=== PATIENT | female | born 1935 | race Caucasian/White ===

== ENCOUNTER 2016-09-08 08:03 | Emergency (ER) | payer MEDICARE ==
--- NOTE | 2016-09-08 08:22 | ERNOTE ---
ENT HPI Presenting Symptoms: nosebleed Time Seen by Provider: 09/08/16 08:14 Source: patient Exam Limitations: no limitations - Immun/Allergies/Home Medications Immunizations: IMMUNIZATION HX Immunizations Up to Date Yes History of Influenza Vaccine Yes Hx Pneumococcal Vaccination Yes Allergies/Adverse Reactions: Allergies Allergy/AdvReac Type Severity Reaction Status Date / Time Tetanus Toxoid,Fl Allergy Mild "MAKES Verified 09/08/16 08:12 *RETIRED-11/26/12 SICK" [Tetanus Toxoid,Fluid] codeine [Codeine] AdvReac Mild MAKES HYPER Verified 09/08/16 08:12 levofloxacin [Levofloxacin] AdvReac Mild RASH Verified 09/08/16 08:12 MSG Allergy Uncoded 09/08/16 08:12 Home Medications: HOME MEDICATIONS Levothyroxine Sodium [Synthroid] 100 mcg PO DAILY 07/27/12 [Last Taken Unknown] Calcium/Cranberry Fruit [Cranberry 400 mg Caplet] 1 each PO DAILY 03/31/15 [ Last Taken Unknown] Aspirin [Aspirin Chewable] 81 mg PO DAILY 04/14/16 [Last Taken Unknown] Potassium Chloride [K-Dur] 40 meq PO DAILY #30 tab 04/15/16 [Last Taken Unknown] Cholecalciferol (Vitamin D3) [Vitamin D3] 2,000 unit PO DAILY 09/08/16 [Last Taken Unknown] Cinnamon Bark [Cinnamon] 1,000 mg PO DAILY 09/08/16 [Last Taken Unknown] Docusate Sodium [Stool Softener] 200 mg PO DAILY PRN 09/08/16 [Last Taken Unknown] Metoprolol Tartrate [Lopressor] 100 mg PO BID 09/08/16 [Last Taken Unknown] Torsemide [Demadex] 20 mg PO DAILY 09/08/16 [Last Taken Unknown] Warfarin Sodium [Coumadin] 2 mg PO DAILY@1700 09/08/16 [Last Taken Unknown] - History of Present Illness Date (Duration): 09/07/16 Severity: Present: moderate ENT Location: Present: nose Prearrival Treatment: Present: no prearrival treatment Modifying Factors - Improves: Reports: rest, other Modifying Factors - Worsens: Reports: coughing Associated Symptoms - ENT: Reports: nasal congestion/drainage, other - patient has had bleeding from left nare since last evening Review of Systems - Review of Systems Constitutional: Present: no symptoms reported EYE: Present: no symptoms reported ENT: Present: other - bleeding from left nare Respiratory: Present: no symptoms reported Cardiology: Present: no symptoms reported Gastrointestinal/Abdominal: Present: no symptoms reported Genitourinary: Present: no symptoms reported Musculoskeletal: Present: no symptoms reported Skin: Present: no symptoms reported Neurological: Present: no symptoms reported Endocrine: Present: no symptoms reported Hematologic/Lymphatic: Present: easy bruising, easy bleeding Psych: Present: no symptoms reported All Other Systems: All systems neg except as marked - Patient's Past Medical History Patient History - Medical: Anemia, Diabetes Type 2, Hypothyroidism, UTI'S, Other Patient History - Cardiac/Respiratory: Atrial Fibrillation, CHF, Hyperlipidemia Patient History - Cancer: No Hx of Cancer Patient History - Surgical Procedures: Cholecystectomy, Hysterectomy, T & A Patient History - Other: None - Family History Mother Family History - Medical: , Diabetes Type 2 Family History - Cardiac/Respiratory: Cardiac Arrest, CHF, Myocardial Infarction Family History - Cancer: No pertinent family hx Father Family History - Medical: , Diabetes Type 2 Family History - Cardiac/Respiratory: No pertinent hx, Atrial Fibrillation Family History - Cancer: No pertinent family hx Sister Family History - Medical: No pertinent hx, Diabetes Type 2 Family History - Cardiac/Respiratory: Atrial Fibrillation, Coronary Heart Disease, CVA/Stroke Family History - Cancer: No pertinent family hx Brother Family History - Medical: Diabetes Type 2 Family History - Cardiac/Respiratory: Coronary Heart Disease - Social History Living Situations: home Abuse History: No History of abuse Psych History: No pertinent hx Does anyone smoke in the home?: No Smoking Status: Never smoker Have you smoked in the past 12 months: No Do you dip or chew tobacco: No Alcohol Use: rarely Drug Use: none - Immunizations Immunizations Up to Date: Yes Hx Pneumococcal Vaccination: Yes History of Influenza Vaccine: Yes Physical Exam - Physical Exam General Appearance: Present: alert, mild distress, anxious Eye Exam: Normal inspection: bilateral, PERRL: bilateral, EOMI: bilateral, Abnormal EOM: bilateral, Abnormal pupil: bilateral, Sclera injection: bilateral , Scleral icterus: bilateral, Eye drainage: bilateral, Eyelid inflammation: bilateral, Conjunctivae pale: bilateral, Photophobia: bilateral, Other: bilateral Ears, Nose, Throat: Present: other - active bleeding from nasal septum left nare Neck: Present: normal inspection, nontender Respiratory: Present: no respiratory distress, normal breath sounds, no accessory muscle use, chest nontender, lungs clear Cardiovascular/Chest: Present: irregularly irregular, systolic murmur Peripheral Pulses: N=norm/S=strong/W=weak/B=bound/A=absent: Carotid (R): Normal , Carotid (L): Normal, Radial (R): Normal, Radial (L): Normal, Femoral (R): Normal, Femoral (L): Normal, Dorsalis-pedis (R): Normal Gastrointestinal/Abdominal: Present: normal bowel sounds Rectal Exam: Present: deferred Back Exam: Present: normal inspection, normal range of motion, no CVA tenderness Extremity Exam: Present: normal inspection, non-tender, normal range of motion, no edema Neurological Exam: Present: alert, oriented, normal mood/affect, no motor/ sensory deficits DTR: N=norm/NB=norm/brisk/A=abs/DD=dull/dimin/HC=hyperactive: Bicep (R): Normal , Bicep (L): Normal, Tricep (R): Normal, Tricep (L): Normal, Knee (R): Normal Skin Exam: Present: normal color, warm/dry Lymphatic Exam: Present: no adenopathy Pelvic Exam: Present: deferred ED Progress - Results and Orders Patient's Lab Results:: I have reviewed the patient's lab results. - Vital Signs Patient's Vital Signs:: I have reviewed the patient's vital signs. Vital Signs: Vital Signs 09/08/16 08:08 Temperature 36.6 C Pulse Rate 83 Respiratory 16 Rate Blood Pressure 132/69 O2 Sat by Pulse 96 Oximetry - Progress/Reassessment Chief Complaint: Nose Bleed Progress:: Improved Procedures Date and Time: nasal packing placed in left nare , bleeding resolved to f/u with ent 2-3 days return if further problems develop Departure Clinical Impression: Epistaxis - Departure Disposition: Home self-care Condition: Fair Additional Instructions: patient to maintain rhino rocket until seen by [facility] care Referrals: Aleida Wright MD [Primary Care Provider] -
[2016-09-08 08:43] LABS: Hematocrit 37.5 % (37.0-47.0); Mean Cell Volume 96.9 fl (78-100); Mean Platelet Volume 11.5 fl (6.0-9.5); Neutrophil # 4.3 K/mm3 (1.3-6.0); Neutrophil % 67.1 % (42-75.0); Platelet Count 143 K/mm3 (150-450); Red Blood Count 3.87 M/mm3 (4.2-5.4); Red Cell Distribution Width 14.6 % (11.5-14.0); White Blood Count 6.5 K/mm3 (4.0-10.5)
[2016-09-08 09:01] LABS: INR 2.4 INR (0.90-1.10)
[2016-09-08 09:52] VITALS: BP 119/52
== END 2016-09-08 09:25 | disposition home or self-care (01) ==
LOC: ER 08:03
DX: R04.0 Epistaxis (principal); D64.9 Anemia, unspecified; E11.9 Type 2 diabetes mellitus without complications; E03.9 Hypothyroidism, unspecified; I48.91 Unspecified atrial fibrillation; Z79.01 Long term (current) use of anticoagulants; I50.9 Heart failure, unspecified; E78.5 Hyperlipidemia, unspecified; Z87.440 Personal history of urinary (tract) infections

== ENCOUNTER 2019-06-07 18:18 | Inpatient (IN) ==
[2019-06-07] MEDS ORDERED: ALBUTEROL SULFATE 2.5 MG/0.5 ML VIAL.NEB IH ONE (18:27)
[2019-06-07] MEDS ORDERED: FUROSEMIDE 10 MG/ML VIAL IV ONE (18:28)
--- NOTE | 2019-06-07 18:51 | ERNOTE ---
Dyspnea - Date Date of Service: 06/07/19 - General Presenting Symptoms: shortness of breath, difficulty of breathing Time Seen by Provider: 06/07/19 18:23 Source: patient, family Exam Limitations: clinical condition - Immun/Allergies/Home Medications Immunizations: IMMUNIZATION HX Immunizations Up to Date Yes History of Influenza Vaccine Yes Hx Pneumococcal Vaccination Yes Allergies/Adverse Reactions: Allergies Tetanus Toxoid,Fl *RETIRED-11/26/12 [Tetanus Toxoid,Fluid] Allergy (Mild, Verified 04/25/19 10:13) "MAKES SICK" benzonatate Allergy (Verified 04/25/19 10:13) "deathly sick" codeine [Codeine] Adverse Reaction (Mild, Verified 04/25/19 10:13) MAKES HYPER levofloxacin [Levofloxacin] Adverse Reaction (Mild, Verified 04/25/19 10:13) RASH MSG Allergy (Uncoded 03/28/19 13:08) unknown Home Medications: HOME MEDICATIONS Calcium/Cranberry Fruit [Cranberry 400 mg Caplet] 1 ea PO DAILY 03/31/15 [Last Taken Unknown] Docusate Sodium [Stool Softener] 200 mg PO DAILY PRN 09/08/16 [Last Taken Unknown] Warfarin Sodium [Coumadin] 2 mg PO DAILY@1700 09/08/16 [Last Taken Unknown] Potassium Chloride [K-Dur] 20 meq PO BID 02/02/17 [Last Taken Unknown] Metoprolol Succinate 200 mg PO DAILY 10/11/17 [Last Taken Unknown] blood sugar diagnostic See Dose Instructions .ROUTE .MEDSUPPLY #100 ea 12/22/17 [Last Taken Unknown] torsemide 20 mg tablet 20 mg PO DAILY 03/20/18 [Last Taken Unknown] warfarin 1 mg tablet See Rx Instructions .ROUTE .COMPLEX #180 tablet 03/11/19 [Last Taken Unknown] levothyroxine 100 mcg tablet See Rx Instructions .ROUTE .COMPLEX #90 tablet 03/19/19 [Last Taken Unknown] blood sugar diagnostic See Rx Instructions .ROUTE .COMPLEX #100 each 05/27/19 [Last Taken Unknown] - History of Present Illness Narrative: patient presents to ed with c/o dyspnea increasing over last several days,, starte with upper respiratory congestion Severity: moderate Treatment [employer]: albuterol, other - solumedrol Initiating event: Reports: upper resp illness Frequency of episodes: Reports: frequent episodes Modifying Factors - (Improves): Reports: albuterol, oxygen, coughing Modifying Factors (Worsens): Reports: activity, coughing Associated Symptoms-Dyspnea: Reports: fever/chills, wheezing, dizziness, lightheadedness Review of Systems - Review of Systems Constitutional: Present: See HPI, weakness, fatigue, malaise EYE: Present: no symptoms reported ENT: Present: nose pain, nose congestion Respiratory: Present: See HPI, shortness of breath, cough, orthopnea, wheezing Cardiology: Present: no symptoms reported Gastrointestinal/Abdominal: Present: no symptoms reported Genitourinary: Present: no symptoms reported Musculoskeletal: Present: no symptoms reported Skin: Present: no symptoms reported Neurological: Present: no symptoms reported Endocrine: Present: no symptoms reported Hematologic/Lymphatic: Present: no symptoms reported Psych: Present: no symptoms reported Medical History (Last Reviewed 06/07/19 @ 18:53 by Becca Barriga RN) Mild concentric left ventricular hypertrophy (LVH) (Resolved) Onset Date: 09/24/15 EF 35-40%, LA severely dilated, RA severely dilated, diastolic dysfunction, severe MR, RSVP 45-50mmHg, mild AR, Echo, [facility] 02/14/2015 Hypothyroidism (Chronic) Onset Date: Unknown Hypertension (Chronic) Onset Date: Unknown Heart failure (Chronic) Onset Date: Unknown Type 2 diabetes mellitus (Chronic) Onset Date: Unknown History of cardioversion (Resolved) Onset Date: Unknown Atrial fibrillation (Chronic) Onset Date: Unknown Asthma (Chronic) Onset Date: Unknown Wrist fracture, right Onset Date: 03/05/19 Surgical History: Surgical History (Last Reviewed 06/07/19 @ 18:53 by Becca Barriga RN) History of cholecystectomy Onset Date: Unknown History of hysterectomy Onset Date: ~1972 partial History of tonsillectomy and adenoidectomy Onset Date: Unknown Mitral valve replaced Onset Date: 09/24/15 Family History: Family History (Last Reviewed 06/07/19 @ 18:53 by Becca Barriga RN) Father Diabetes Mother Diabetes Social History: (Last Reviewed 06/07/19 @ 18:53 by Becca Barriga RN) Social History: Marital status: number of children: 2 current occupational status: retired Highest education level completed: high school graduate Service: No Tobacco: Smoking Status: Former smoker Alcohol: alcohol intake: current alcohol intake frequency: a few times a month Substance Use: substance use type: does not use Dietary Habits: caffeine: Yes Type: coffee Physical Exam - Physical Exam General Appearance: Present: moderate distress, anxious Head Exam: Present: normal inspection, no evidence of injury Eye Exam: Normal inspection: bilateral, PERRL: bilateral, EOMI: bilateral Ears, Nose, Throat: Present: normal ENT inspection, normal pharynx Neck: Present: normal inspection, nontender Respiratory: Present: respiratory distress, accessory muscle use, decreased breath sounds, crackles, rales, rhonchi, wheezing Gastrointestinal/Abdominal: Present: normal bowel sounds, nontender, nondistended, soft, no organomegaly Back Exam: Present: normal inspection, normal range of motion, no CVA tenderness, no vertebral tenderness Extremity Exam: Present: normal inspection, non-tender, normal range of motion, no edema Neurological Exam: Present: alert, oriented, normal mood/affect, no motor/sensory deficits Skin Exam: Present: normal color, warm/dry Lymphatic Exam: Present: no adenopathy Progress - Date and Time Seen: Date and Time: 06/07/19 19:36 patient improved, discussed case with dr christian, to admit to hospital - Results and Orders Patient's Lab Results:: I have reviewed the patient's lab results. - Vital Signs Patient's Vital Signs:: I have reviewed the patient's vital signs. Vital Signs: Vital Signs 06/07/19 18:24 Temperature 38.4 C H Pulse Rate 119 H Respiratory Rate 30 H Blood Pressure 124/67 O2 Sat by Pulse Oximetry 94 - EKG EKG #1 EKG: atrial fibrillation EKG read: Interp. by me - X-Ray X-Ray #1 X-Ray: chest - , pulmonary edema - Progress/Reassessment Chief Complaint: Dyspnea Progress:: Improved - Transfer of Care Expected Disposition: Admit Plan - Plan Plan: to admit to hospital Departure Clinical Impression: Pneumonia and influenza, A-fib, Acute CHF - Departure Disposition: Short Term Hospital Inpatient Condition: Serious
[2019-06-07 19:00] LABS: Hematocrit 36.5 % (37.0-47.0); Hemoglobin 11.3 gm/dL (12.5-16.0); Mean Corpuscular Hemoglobin 31.6 pg (27-31); Mean Platelet Volume 11.4 fl (8-12.5); Neutrophil # 8.4 K/mm3 (1.3-6.0); Neutrophil % 84.2 % (42-75.0); Platelet Count 106 K/mm3 (150-450); Red Blood Count 3.58 M/mm3 (4.2-5.4); Red Cell Distribution Width 15.6 % (11.5-14.0)
[2019-06-07 19:11] LABS: Prothrombin Time (Patient) 25.2 Seconds (9.1-10.7)
[2019-06-07 19:12] LABS: INR 2.64 INR (0.92-1.08)
[2019-06-07 19:22] LABS: Albumin * 3.8 gm/dl (3.4-5.0); Anion Gap 8.7 mmol/L (6.8-13.8); BUN/Creatinine Ratio 21.7 (9.0-21.6); Bilirubin, Total 0.8 mg/dL (0.0-1.1); CRP 8.2 mg/dL (0.0-0.9); Ca. Corrected For Albumin 8.1 mg/dL (8.4-10.2); Calcium * 8.3 mg/dL (7.9-10.9); Carbon Dioxide 31.7 mmol/L (24-32.6); Potassium 3.4 mmol/L (3.4-4.6); Total Protein 7.4 gm/dL (6.2-8.2); Troponin I 0.048 ng/mL (0.00-0.10)
[2019-06-07] MEDS ORDERED: NORMAL SALINE 1,000 ML IV PRN (19:33)
[2019-06-07] MEDS ORDERED: LIDOCAINE HCL 50 ML VIAL IM ONE (19:35)
[2019-06-07] MEDS ORDERED: ALBUTEROL SULFATE 2.5 MG/0.5 ML VIAL.NEB IH PRN (19:43)
[2019-06-07] MEDS ORDERED: ACETAMINOPHEN 500 MG TABLET PO ONE (19:44)
[2019-06-07] MEDS ORDERED: ACETAMINOPHEN 500 MG TABLET PO PRN (20:07)
[2019-06-07] MEDS ORDERED: NORMAL SALINE 500 ML IV PRN (20:15)
[2019-06-07] MEDS ORDERED: ENOXAPARIN SODIUM 40 MG/0.4 ML SYRG SC SCH (20:15)
[2019-06-07] MEDS ORDERED: DOCUSATE SODIUM 100 MG CAPSULE PO PRN (20:17)
--- NOTE | 2019-06-07 21:02 | HP ---
Chief Complaint - Chief Complaint Date of Service: 06/07/19 Time of Service: 20:59 Chief Complaint: I have cough fever and chest congestion for 2 days History of Present Illness: 83-year-old female with past medical history of atrial fibrillation, bronchial asthma, congestive heart failure, hypertension, hypothyroidism, was brought to the ER for evaluation of productive cough, chest congestion, fever, chills, and shortness of breath that started 2 days ago. Patient reports her symptoms started with a irritated throat which then developed into congestion and postnasal drainage and became accompanied by a productive cough, she later developed shortness of breath and developed chills as well as fever. Patient denies any sick contacts but admits to going bowling the day before becoming ill although she is not aware of anyone being ill at the time. Patient lives at home with her who is in his usual state of health and shows no sign of illness at the moment. She tried [id number] medications for her symptoms but continued to worsen. Patient's daughters became alarmed when they saw how weak their mother was becoming, they decided to bring the patient to the hospital this afternoon. Medical History (Last Reviewed 06/07/19 @ 18:53 by Becca Barriga RN) Mild concentric left ventricular hypertrophy (LVH) (Resolved) Onset Date: 09/24/15 EF 35-40%, LA severely dilated, RA severely dilated, diastolic dysfunction, severe MR, RSVP 45-50mmHg, mild AR, Echo, [facility] 02/14/2015 Hypothyroidism (Chronic) Onset Date: Unknown Hypertension (Chronic) Onset Date: Unknown Heart failure (Chronic) Onset Date: Unknown Type 2 diabetes mellitus (Chronic) Onset Date: Unknown History of cardioversion (Resolved) Onset Date: Unknown Atrial fibrillation (Chronic) Onset Date: Unknown Asthma (Chronic) Onset Date: Unknown Wrist fracture, right Onset Date: 03/05/19 Surgical History: Surgical History (Last Reviewed 06/07/19 @ 18:53 by Becca Barriga RN) History of cholecystectomy Onset Date: Unknown History of hysterectomy Onset Date: ~1972 partial History of tonsillectomy and adenoidectomy Onset Date: Unknown Mitral valve replaced Onset Date: 09/24/15 Family History: Family History (Last Reviewed 06/07/19 @ 18:53 by Becca Barriga RN) Father Diabetes Mother Diabetes Social History: (Last Reviewed 06/07/19 @ 18:53 by Becca Barriga RN) Social History: Marital status: number of children: 2 current occupational status: retired Highest education level completed: high school graduate Service: No Tobacco: Smoking Status: Former smoker Alcohol: alcohol intake: current alcohol intake frequency: a few times a month Substance Use: substance use type: does not use Dietary Habits: caffeine: Yes Type: coffee Peds Patient Hx - Developmental: No Pertinent Hx Peds Patient Hx - Medical: No Pertinent Hx Peds Patient Hx - Cardiac/Respiratory: No Pertinent Hx Peds Patient Hx - Surgical: No Surgical History Patient History - Cancer: No Hx of Cancer Review Of Systems (GEN) - Review of Systems Generalized/Overall Review: Present: Weakness, Chills, Fever, Malaise, Fatigue EENTM: Present: No Symptoms Reported Respiratory: Present: Cough, Shortness of Breath, Wheezing Cardiac: Present: No Symptoms Reported Abdominal: Present: No Symptoms Reported Genitourinary: Present: No Symptoms Reported Musculoskeletal: Present: No Symptoms Reported Neurological: Present: No Symptoms Reported Skin: Present: No Symptoms Reported Endocrine: Present: No Symptoms Reported Immunizations: IMMUNIZATION HX Immunizations Up to Date Yes History of Influenza Vaccine Yes Hx Pneumococcal Vaccination Yes Allergies/Adverse Reactions: Allergies Allergy/AdvReac Type Severity Reaction Status Date / Time Tetanus Toxoid,Fl Allergy Mild "MAKES Verified 04/25/19 10:13 *RETIRED-11/26/12 SICK" [Tetanus Toxoid,Fluid] benzonatate Allergy "deathly Verified 04/25/19 10:13 sick" codeine [Codeine] AdvReac Mild MAKES HYPER Verified 04/25/19 10:13 levofloxacin [Levofloxacin] AdvReac Mild RASH Verified 04/25/19 10:13 MSG Allergy unknown Uncoded 03/28/19 13:08 Home Medications: HOME MEDICATIONS Calcium/Cranberry Fruit [Cranberry 400 mg Caplet] 1 ea PO DAILY 03/31/15 [Last Taken Unknown] Docusate Sodium [Stool Softener] 200 mg PO DAILY PRN 09/08/16 [Last Taken Unknown] Warfarin Sodium [Coumadin] 2 mg PO DAILY@1700 09/08/16 [Last Taken Unknown] Potassium Chloride [K-Dur] 20 meq PO BID 02/02/17 [Last Taken Unknown] Metoprolol Succinate 200 mg PO DAILY 10/11/17 [Last Taken Unknown] blood sugar diagnostic See Dose Instructions .ROUTE .MEDSUPPLY #100 ea 12/22/17 [Last Taken Unknown] torsemide 20 mg tablet 20 mg PO DAILY 03/20/18 [Last Taken Unknown] warfarin 1 mg tablet See Rx Instructions .ROUTE .COMPLEX #180 tablet 03/11/19 [Last Taken Unknown] levothyroxine 100 mcg tablet See Rx Instructions .ROUTE .COMPLEX #90 tablet 03/19/19 [Last Taken Unknown] blood sugar diagnostic See Rx Instructions .ROUTE .COMPLEX #100 each 05/27/19 [Last Taken Unknown] Exam - Exam Vital Signs: Vital Signs - Last Taken Temp 38.7 C H 06/07/19 20:20 Pulse 106 H 06/07/19 20:20 Resp 20 06/07/19 20:20 BP 98/58 06/07/19 20:20 Pulse Ox 99 06/07/19 20:20 Constitutional: Present: Alert, Oriented x3, Cooperative, Well developed, Well nourished, No distress, Elderly, Obese ENT Exam: Present: normal ENT inspection, pharynx normal, hard of hearing Eye Exam: bilateral eye: normal inspection, PERRL, EOMI Neck: Present: non-tender, full range of motion, supple, normal inspection, trachea midline Back Exam: Present: normal inspection, no CVA tenderness, no vertebral tenderness Breasts: Present: Exam deferred, Nontender Respiratory: Present: chest non-tender, no respiratory distress, no accessory muscle use, crackles, rales, rhonchi, wheezing Cardiovascular/Chest: Present: normal peripheral pulses, no chest tenderness, no edema, no gallop, no JVD, no murmur, no rub, irregularly irregular Peripheral Pulses: carotid (R): 3+, carotid (L): 3+, femoral (R): 3+, femoral (L): 3+ Abdomen: Present: Normal bowel sounds, soft, nontender, nondistended, no rebound tenderness, no hepatospenomegaly, no masses /Rectal: Present: Exam deferred Extremity: Present: normal range of motion, non-tender, normal inspection, no pedal edema, no calf tenderness, normal capillary refill, pelvis stable Skin Exam: Present: normal color, warm/dry, no cyanosis Lymphatic: Present: no adenopathy Neurologic: 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, normal cerebellar test, no mot or/sensory deficits, alert, normal mood/affect, oriented x 3 Appearance: Present: appropriate appearance, appropriate insight, neat, no memory impairment Eye contact: Present: cooperative, good eye contact, normal speech Thoughts: Present: normal thought pattern, no apparent hallucination Diagnostic Studies: Abnormal Lab Results 06/07/19 06/07/19 06/07/19 Range/Units 18:35 18:52 18:52 RBC 3.58 L (4.2-5.4) M/mm3 Hgb 11.3 L (12.5-16.0) gm/dL Hct 36.5 L (37.0-47.0) % MCV 102.0 H (78-100) fl MCH 31.6 H (27-31) pg MCHC 31.0 L (32-36) g/dl RDW 15.6 H (11.5-14.0) % Plt Count 106 L (150-450) K/mm3 Neutrophils % 84.2 H (42-75.0) % Lymphocytes % 12.4 L (20-51) % Neutrophils # 8.4 H (1.3-6.0) K/mm3 Lymphocytes # 1.24 L (1.5-3.5) k/mm3 PT (9.1-10.7) Seconds INR (Anticoag Therapy) (0.92-1.08) INR PTT ([place]) (24-32) Seconds pO2 (83.0-108.0) mmHg Total CO2 (19.0-24.0) mmol/L ABG pH (7.35-7.45) ABG O2 Sat (Measured) (94.0-98.0) % Est GFR (Non-Af Amer) 53 L (60-130) mL/min BUN/Creatinine Ratio 21.7 H (9.0-21.6) Random Glucose 173 H (70-110) mg/dL Lactic Acid, Venous (0.4-2.0) mmol/L Calcium Adj for Albumin 8.1 L (8.4-10.2) mg/dL AST 115 H (0-48) U/L C-Reactive Prot, Quant 8.2 H (0.0-0.9) mg/dL B-Natriuretic Peptide 3638 H (5-550) pg/mL Influenza Type A Ag Positive H (NEGATIVE) 06/07/19 06/07/19 06/07/19 Range/Units 18:52 18:52 18:52 RBC (4.2-5.4) M/mm3 Hgb (12.5-16.0) gm/dL Hct (37.0-47.0) % MCV (78-100) fl MCH (27-31) pg MCHC (32-36) g/dl RDW (11.5-14.0) % Plt Count (150-450) K/mm3 Neutrophils % (42-75.0) % Lymphocytes % (20-51) % Neutrophils # (1.3-6.0) K/mm3 Lymphocytes # (1.5-3.5) k/mm3 PT 25.2 H (9.1-10.7) Seconds INR (Anticoag Therapy) 2.64 H (0.92-1.08) INR PTT ([place]) 35.9 H (24-32) Seconds pO2 (83.0-108.0) mmHg Total CO2 (19.0-24.0) mmol/L ABG pH (7.35-7.45) ABG O2 Sat (Measured) (94.0-98.0) % Est GFR (Non-Af Amer) (60-130) mL/min BUN/Creatinine Ratio (9.0-21.6) Random Glucose (70-110) mg/dL Lactic Acid, Venous 2.3 H* (0.4-2.0) mmol/L Calcium Adj for Albumin (8.4-10.2) mg/dL AST (0-48) U/L C-Reactive Prot, Quant (0.0-0.9) mg/dL B-Natriuretic Peptide (5-550) pg/mL Influenza Type A Ag (NEGATIVE) 06/07/19 Range/Units 19:30 RBC (4.2-5.4) M/mm3 Hgb (12.5-16.0) gm/dL Hct (37.0-47.0) % MCV (78-100) fl MCH (27-31) pg MCHC (32-36) g/dl RDW (11.5-14.0) % Plt Count (150-450) K/mm3 Neutrophils % (42-75.0) % Lymphocytes % (20-51) % Neutrophils # (1.3-6.0) K/mm3 Lymphocytes # (1.5-3.5) k/mm3 PT (9.1-10.7) Seconds INR (Anticoag Therapy) (0.92-1.08) INR PTT ([facility]) (24-32) Seconds pO2 108.8 H (83.0-108.0) mmHg Total CO2 26.0 H (19.0-24.0) mmol/L ABG pH 7.48 H (7.35-7.45) ABG O2 Sat (Measured) 98.3 H (94.0-98.0) % Est GFR (Non-Af Amer) (60-130) mL/min BUN/Creatinine Ratio (9.0-21.6) Random Glucose (70-110) mg/dL Lactic Acid, Venous (0.4-2.0) mmol/L Calcium Adj for Albumin (8.4-10.2) mg/dL AST (0-48) U/L C-Reactive Prot, Quant (0.0-0.9) mg/dL B-Natriuretic Peptide (5-550) pg/mL Influenza Type A Ag (NEGATIVE) Laboratory Results WBC 10.0 K/mm3 (4.0-10.5) 06/07/19 18:52 RBC 3.58 M/mm3 (4.2-5.4) L 06/07/19 18:52 Hgb 11.3 gm/dL (12.5-16.0) L 06/07/19 18:52 Hct 36.5 % (37.0-47.0) L 06/07/19 18:52 MCV 102.0 fl (78-100) H 06/07/19 18:52 MCH 31.6 pg (27-31) H 06/07/19 18:52 MCHC 31.0 g/dl (32-36) L 06/07/19 18:52 RDW 15.6 % (11.5-14.0) H 06/07/19 18:52 Plt Count 106 K/mm3 (150-450) L 06/07/19 18:52 MPV 11.4 fl (8-12.5) 06/07/19 18:52 Immature Gran % (Auto) 0.30 % (0.001-0.429) 06/07/19 18:52 Immature Gran # (Auto) 0.03 K/mm3 (0.000-0.0310) 06/07/19 18:52 Neutrophils % 84.2 % (42-75.0) H 06/07/19 18:52 Lymphocytes % 12.4 % (20-51) L 06/07/19 18:52 Monocytes % 2.9 % (0.0-9) 06/07/19 18:52 Eosinophils % 0.0 % (0.0-3.0) 06/07/19 18:52 Basophils % 0.2 % (0.0-1.0) 06/07/19 18:52 Nucleated RBC % 0.0 k/mm3 (0-1) 06/07/19 18:52 Neutrophils # 8.4 K/mm3 (1.3-6.0) H 06/07/19 18:52 Lymphocytes # 1.24 k/mm3 (1.5-3.5) L 06/07/19 18:52 Monocytes # 0.3 k/mm3 (0.0-1.0) 06/07/19 18:52 Eosinophils # 0.0 k/mm3 (0.0-0.7) 06/07/19 18:52 Absolute Basophils 0.0 k/mm3 (0.0-0.1) 06/07/19 18:52 PT 25.2 Seconds (9.1-10.7) H 06/07/19 18:52 INR (Anticoag Therapy) 2.64 INR (0.92-1.08) H 06/07/19 18:52 PTT ([place]) 35.9 Seconds (24-32) H 06/07/19 18:52 pCO2 34.6 mmHg (32.0-45.0) 06/07/19 19:30 pO2 108.8 mmHg (83.0-108.0) H 06/07/19 19:30 HCO3 25.0 mmol/L (21.0-28.0) 06/07/19 19:30 Total CO2 26.0 mmol/L (19.0-24.0) H 06/07/19 19:30 Base Excess 1.6 mmol/L (-2.0-3.0) 06/07/19 19:30 ABG pH 7.48 (7.35-7.45) H 06/07/19 19:30 ABG O2 Sat (Measured) 98.3 % (94.0-98.0) H 06/07/19 19:30 Sodium 136 mmol/L (132-142) 06/07/19 18:52 Plasma Sodium 137 mmol/L (130-142) 06/07/19 18:52 Potassium 3.4 mmol/L (3.4-4.6) 06/07/19 18:52 Chloride 99 mmol/L (97-106) 06/07/19 18:52 Carbon Dioxide 31.7 mmol/L (24-32.6) 06/07/19 18:52 Anion Gap 8.7 mmol/L (6.8-13.8) 06/07/19 18:52 BUN 23 mg/dL (3-23) 06/07/19 18:52 Creatinine 1.06 mg/dL (0.4-1.4) 06/07/19 18:52 Est GFR (Non-Af Amer) 53 mL/min (60-130) L 06/07/19 18:52 BUN/Creatinine Ratio 21.7 (9.0-21.6) H 06/07/19 18:52 Random Glucose 173 mg/dL (70-110) H 06/07/19 18:52 Lactic Acid, Venous 2.3 mmol/L (0.4-2.0) H* 06/07/19 18:52 Calcium 8.3 mg/dL (7.9-10.9) 06/07/19 18:52 Calcium Adj for Albumin 8.1 mg/dL (8.4-10.2) L 06/07/19 18:52 Total Bilirubin 0.8 mg/dL (0.0-1.1) 06/07/19 18:52 AST 115 U/L (0-48) H 06/07/19 18:52 ALT 58 U/L (19-67) 06/07/19 18:52 Alkaline Phosphatase 112 U/L (50-170) 06/07/19 18:52 Troponin I 0.048 ng/mL (0.00-0.10) 06/07/19 18:52 C-Reactive Prot, Quant 8.2 mg/dL (0.0-0.9) H 06/07/19 18:52 B-Natriuretic Peptide 3638 pg/mL (5-550) H 06/07/19 18:52 Total Protein 7.4 gm/dL (6.2-8.2) 06/07/19 18:52 Albumin 3.8 gm/dl (3.4-5.0) 06/07/19 18:52 Influenza Type A Ag Positive (NEGATIVE) H 06/07/19 18:35 Influenza Type B Ag Negative (NEGATIVE) 06/07/19 18:35 Assessment/Plan - Narrative Narrative: Patient was evaluated medical chart was reviewed and decision to admit to inpatient for treatment of bronchopneumonia, influenza type a, decompensated CHF atrial fibrillation was made. Patient had a positive lactic acid on admission but given her decompensated CHF only soft hydration was ordered to avoid fluid overload, she was started on IV antibiotics as well as Tamiflu for influenza. She was also found to have a fever and was administered acetaminophen. Patient is currently on nasal cannula and maintains adequate oxygen saturation, all other vitals are stable. She has a persistent productive cough and abnormal lung sounds at consist of wheezing crackles and rhonchi, therefore breathing tr eatments and antitussives were ordered. We will also treat patient with IV diuretics to treat pulmonary edema secondary to decompensation of her CHF and monitor with strict input and output to ensure adequate diuresis. Daily INR has been ordered for adequate anticoagulantion with her warfarin, for now we will continue the current dose since she is at target. We will continue to monitor patient closely.
[2019-06-07] MEDS ORDERED: guaiFENesin/DEXTROMETHORPHAN SYRUP PO PRN (21:22)
[2019-06-07] MEDS: INSULIN REGULAR, HUMAN 100 UNITS/ML VIAL SC SCH (23:16)
[2019-06-07] MEDS: POTASSIUM CHLORIDE 20 MEQ TABLET.SA PO SCH (23:17)
[2019-06-07] MEDS: WARFARIN SODIUM 1 MG TABLET PO SCH (23:18)
[2019-06-07] MEDS: OSELTAMIVIR PHOSPHATE 30 MG CAPSULE PO SCH (23:18)
[2019-06-07] MEDS ORDERED: LEVOFLOXACIN 250 MG TABLET ONE (23:19)
[2019-06-07] MEDS: LEVOFLOXACIN 750 MG TABLET PO SCH (23:20)
[2019-06-08] MEDS: PANTOPRAZOLE SODIUM 40 MG in NORMAL SALINE 100 ML IV SCH ×3 (00:36→21:07)
[2019-06-08] MEDS: OSELTAMIVIR PHOSPHATE 30 MG CAPSULE PO SCH ×3 (00:37→21:06)
[2019-06-08] MEDS: FUROSEMIDE 10 MG/ML VIAL IV SCH ×2 (05:40→17:54)
[2019-06-08] MEDS: LEVOTHYROXINE SODIUM 100 MCG TABLET PO SCH (06:38)
[2019-06-08] MEDS: INSULIN REGULAR, HUMAN 100 UNITS/ML VIAL SC SCH ×4 (06:42→21:05)
[2019-06-08] MEDS: CRANBERRY FRUIT PO SCH (08:25)
[2019-06-08] MEDS: CALCIUM PO SCH (08:25)
[2019-06-08] MEDS: METOPROLOL SUCCINATE 100 MG TABLET.SA PO SCH (08:26)
[2019-06-08] MEDS: POTASSIUM CHLORIDE 20 MEQ TABLET.SA PO SCH ×2 (08:26→21:06)
--- NOTE | 2019-06-08 10:11 | PN ---
Subjective - Date and Time Seen Date: 06/08/19 Time: 10:04 Subjective Narrative: I feel better than when I arrived but still have a cough. Objective - Review of Systems Generalized/Overall Review: Reports: No Symptoms Reported EENTM: Reports: No Symptoms Reported Respiratory: Reports: Cough, Shortness of Breath Cardiac: Reports: No Symptoms Reported Abdominal: Reports: No Symptoms Reported Genitourinary Symptoms: Reports: No Symptoms Reported Musculoskeletal Complaints: Reports: No Symptoms Reported Neurological: Reports: No Symptoms Reported Skin: Reports: No Symptoms Reported Endocrine: Reports: No Symptoms Reported - Vitals Vitals: Last Vital Signs Temp 36.6 C 06/08/19 06:28 Pulse 87 06/08/19 08:26 Resp 16 06/08/19 06:28 BP 108/51 06/08/19 08:26 Pulse Ox 96 06/08/19 08:55 - Abnormal Lab Findings Abnormal Lab Findings: Abnormal Lab Results 06/07/19 06/07/19 06/07/19 Range/Units 18:35 18:52 18:52 RBC 3.58 L (4.2-5.4) M/mm3 Hgb 11.3 L (12.5-16.0) gm/dL Hct 36.5 L (37.0-47.0) % MCV 102.0 H (78-100) fl MCH 31.6 H (27-31) pg MCHC 31.0 L (32-36) g/dl RDW 15.6 H (11.5-14.0) % Plt Count 106 L (150-450) K/mm3 Neutrophils % 84.2 H (42-75.0) % Lymphocytes % 12.4 L (20-51) % Neutrophils # 8.4 H (1.3-6.0) K/mm3 Lymphocytes # 1.24 L (1.5-3.5) k/mm3 PT (9.1-10.7) Seconds INR (Anticoag Therapy) (0.92-1.08) INR PTT ([place]) (24-32) Seconds pO2 (83.0-108.0) mmHg Total CO2 (19.0-24.0) mmol/L ABG pH (7.35-7.45) ABG O2 Sat (Measured) (94.0-98.0) % Est GFR (Non-Af Amer) 53 L (60-130) mL/min BUN/Creatinine Ratio 21.7 H (9.0-21.6) Random Glucose 173 H (70-110) mg/dL Lactic Acid, Venous (0.4-2.0) mmol/L Calcium Adj for Albumin 8.1 L (8.4-10.2) mg/dL AST 115 H (0-48) U/L C-Reactive Prot, Quant 8.2 H (0.0-0.9) mg/dL B-Natriuretic Peptide 3638 H (5-550) pg/mL Influenza Type A Ag Positive H (NEGATIVE) 06/07/19 06/07/19 06/07/19 Range/Units 18:52 18:52 18:52 RBC (4.2-5.4) M/mm3 Hgb (12.5-16.0) gm/dL Hct (37.0-47.0) % MCV (78-100) fl MCH (27-31) pg MCHC (32-36) g/dl RDW (11.5-14.0) % Plt Count (150-450) K/mm3 Neutrophils % (42-75.0) % Lymphocytes % (20-51) % Neutrophils # (1.3-6.0) K/mm3 Lymphocytes # (1.5-3.5) k/mm3 PT 25.2 H (9.1-10.7) Seconds INR (Anticoag Therapy) 2.64 H (0.92-1.08) INR PTT ([place]) 35.9 H (24-32) Seconds pO2 (83.0-108.0) mmHg Total CO2 (19.0-24.0) mmol/L ABG pH (7.35-7.45) ABG O2 Sat (Measured) (94.0-98.0) % Est GFR (Non-Af Amer) (60-130) mL/min BUN/Creatinine Ratio (9.0-21.6) Random Glucose (70-110) mg/dL Lactic Acid, Venous 2.3 H* (0.4-2.0) mmol/L Calcium Adj for Albumin (8.4-10.2) mg/dL AST (0-48) U/L C-Reactive Prot, Quant (0.0-0.9) mg/dL B-Natriuretic Peptide (5-550) pg/mL Influenza Type A Ag (NEGATIVE) 06/07/19 Range/Units 19:30 RBC (4.2-5.4) M/mm3 Hgb (12.5-16.0) gm/dL Hct (37.0-47.0) % MCV (78-100) fl MCH (27-31) pg MCHC (32-36) g/dl RDW (11.5-14.0) % Plt Count (150-450) K/mm3 Neutrophils % (42-75.0) % Lymphocytes % (20-51) % Neutrophils # (1.3-6.0) K/mm3 Lymphocytes # (1.5-3.5) k/mm3 PT (9.1-10.7) Seconds INR (Anticoag Therapy) (0.92-1.08) INR PTT ([facility]) (24-32) Seconds pO2 108.8 H (83.0-108.0) mmHg Total CO2 26.0 H (19.0-24.0) mmol/L ABG pH 7.48 H (7.35-7.45) ABG O2 Sat (Measured) 98.3 H (94.0-98.0) % Est GFR (Non-Af Amer) (60-130) mL/min BUN/Creatinine Ratio (9.0-21.6) Random Glucose (70-110) mg/dL Lactic Acid, Venous (0.4-2.0) mmol/L Calcium Adj for Albumin (8.4-10.2) mg/dL AST (0-48) U/L C-Reactive Prot, Quant (0.0-0.9) mg/dL B-Natriuretic Peptide (5-550) pg/mL Influenza Type A Ag (NEGATIVE) - Exam Constitutional: Present: Alert, Oriented x3, Cooperative, Well developed, Well nourished, No distress, Elderly ENT Exam: Present: normal ENT inspection, hearing grossly normal, pharynx normal Neck: Present: non-tender, full range of motion, supple, normal inspection, trachea midline Breasts: Present: Exam deferred Respiratory: Present: no respiratory distress, no accessory muscle use, rhonchi, expiration (prolonged), No wheezing Cardiovascular/Chest: Present: no chest tenderness, no edema, no gallop, no JVD, no murmur, no rub, irregularly irregular Abdomen: Present: Normal bowel sounds, soft, nontender, nondistended, no rebound tenderness, no hepatospenomegaly, no masses, obese /Rectal: Present: Exam deferred Extremity: Present: normal range of motion, non-tender, normal inspection, no pedal edema, no calf tenderness, normal capillary refill, pelvis stable Skin Exam: Present: normal color, warm/dry, no cyanosis Lymphatic: Present: no adenopathy Neurologic: Present: 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 Patient reports feeling better than when she arrived however she still has shortness of breath with mild exertion and a lingering cough. Auscultation of the patient's lungs demonstrate scattered rhonchi but no wheezes, she does however have a prolonged expiratory phase. There has been no recurrence of fever or chills and clinically the patient looks better. Given her abnormal breath sounds and shortness of breath, we will keep her in the hospital for an additional day to treat with IV antibiotics, diuretics, and breathing treatments. CMP was ordered for tomorrow morning to reevaluate electrolytes and renal function. - Problems/Diagnosis (1) Bronchopneumonia Problem: Acute (2) Acute decompensated heart failure Problem: Acute (3) Influenza A Problem: Acute (4) Atrial fibrillation Problem: Chronic
[2019-06-08 10:25] LABS: Prothrombin Time (Patient) 32.2 Seconds (9.1-10.7)
[2019-06-08 10:27] LABS: INR 3.41 INR (0.92-1.08)
[2019-06-08] MEDS ORDERED: guaiFENesin/DEXTROMETHORPHAN SYRUP PO PRN (11:15)
[2019-06-08] MEDS: ALBUTEROL SULFATE 2.5 MG/0.5 ML VIAL.NEB IH PRN (14:13)
[2019-06-08] MEDS ORDERED: WARFARIN SODIUM 2 MG TABLET PO SCH (17:00)
[2019-06-08] MEDS: LEVOFLOXACIN 750 MG TABLET PO SCH (21:06)
[2019-06-09] MEDS: ALBUTEROL SULFATE 2.5 MG/0.5 ML VIAL.NEB IH PRN ×2 (03:03→07:03)
[2019-06-09] MEDS: FUROSEMIDE 10 MG/ML VIAL IV SCH (05:48)
[2019-06-09] MEDS: INSULIN REGULAR, HUMAN 100 UNITS/ML VIAL SC SCH ×4 (06:43→20:18)
[2019-06-09] MEDS: LEVOTHYROXINE SODIUM 100 MCG TABLET PO SCH (06:43)
[2019-06-09] MEDS: METOPROLOL SUCCINATE 100 MG TABLET.SA PO SCH ×2 (07:05→09:34)
[2019-06-09 07:24] LABS: Prothrombin Time (Patient) 30.6 Seconds (9.1-10.7)
[2019-06-09 07:25] LABS: INR 3.23 INR (0.92-1.08)
[2019-06-09 07:30] LABS: Albumin * 3.5 gm/dl (3.4-5.0); BUN/Creatinine Ratio 23.9 (9.0-21.6); Bilirubin, Total 0.5 mg/dL (0.0-1.1); Ca. Corrected For Albumin 8.3 mg/dL (8.4-10.2); Calcium * 8.2 mg/dL (7.9-10.9); Carbon Dioxide 36.4 mmol/L (24-32.6); Potassium 3.4 mmol/L (3.4-4.6); Total Protein 7.6 gm/dL (6.2-8.2)
[2019-06-09] MEDS: CRANBERRY FRUIT PO SCH (09:33)
[2019-06-09] MEDS: CALCIUM PO SCH (09:33)
[2019-06-09] MEDS: POTASSIUM CHLORIDE 20 MEQ TABLET.SA PO SCH ×2 (09:34→20:19)
[2019-06-09] MEDS: OSELTAMIVIR PHOSPHATE 30 MG CAPSULE PO SCH ×2 (09:34→20:20)
[2019-06-09] MEDS: PANTOPRAZOLE SODIUM 40 MG in NORMAL SALINE 100 ML IV SCH ×2 (09:35→20:19)
--- NOTE | 2019-06-09 10:19 | PN ---
Subjective - Date and Time Seen Date: 06/09/19 Time: 10:09 Subjective Narrative: I do not feel as well as yesterday, I feel congested and still have a cough. Objective Objective Narrative: 83-year-old female admitted for bronchopneumonia, influenza type A, and decompensated CHF was evaluated at bedside was found to be afebrile and in no acute distress. During this morning's rounds the patient was noted to be weaker than yesterday and said she did not feel as well as yesterday, she still has a congested cough and wheezing. Her breathing is slightly labored and auscultation of her lungs demonstrate residual bibasilar crackles, wheezing, with scattered rhonchi. Patient has been treated with IV antibiotics, Tamiflu, and IV diuretics however it appears she is still in need of additional days of treatment. She reports that she gets asthma exacerbation whenever she has a cold or flu and that her symptoms are very similar to past episodes with a significant wheezing and shortness of breath. Therefore we will keep patient hospitalized for additional day and add steroids to her treatment to help with the wheezing and additional doses of diuretics to address her CHF. Patient had a slight decrease in her renal function and a slight bump up in her transaminases, this might be due to her CHF so the plan is to optimize cardiac function in order to improve the function of these organs. There has been no recurrence of fever or chills and the patient maintained stable vitals. Her warfarin is on hold due to supratherapeutic levels of INR, will follow up with her next results and treat accordingly. - Review of Systems Generalized/Overall Review: Reports: No Symptoms Reported - Vitals Vitals: Last Vital Signs Temp 37.0 C 06/09/19 06:27 Pulse 108 H 06/09/19 07:13 Resp 20 06/09/19 07:13 BP 109/70 06/09/19 07:05 Pulse Ox 95 06/09/19 08:33 - Abnormal Lab Findings Abnormal Lab Findings: Abnormal Lab Results 06/08/19 06/09/19 06/09/19 Range/Units 09:22 07:10 07:10 PT 32.2 H 30.6 H (9.1-10.7) Seconds INR (Anticoag Therapy) 3.41 H 3.23 H (0.92-1.08) INR Carbon Dioxide 36.4 H (24-32.6) mmol/L BUN 27 H (3-23) mg/dL Est GFR (Non-Af Amer) 49 L (60-130) mL/min BUN/Creatinine Ratio 23.9 H (9.0-21.6) Calcium Adj for Albumin 8.3 L (8.4-10.2) mg/dL AST 108 H (0-48) U/L ALT 83 H (19-67) U/L - Exam Constitutional: Present: Alert, Oriented x3, Cooperative, Well developed, Well nourished, No distress, Elderly ENT Exam: Present: normal ENT inspection, hearing grossly normal, pharynx normal Neck: Present: non-tender, full range of motion, supple, normal inspection, trachea midline Breasts: Present: Exam deferred Respiratory: Present: crackles, rhonchi, wheezing, expiration (prolonged) Cardiovascular/Chest: Present: no chest tenderness, no edema, no gallop, no JVD, no murmur, no rub, irregularly irregular Abdomen: Present: Normal bowel sounds, soft, nontender, nondistended, no rebound tenderness, obese /Rectal: Present: Exam deferred Extremity: Present: normal range of motion, non-tender, normal inspection, no pedal edema, no calf tenderness, normal capillary refill, pelvis stable Skin Exam: Present: normal color, warm/dry, no cyanosis Lymphatic: Present: no adenopathy Neurologic: Present: 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 Given the patient's clinical presentation of wheezing, ongoing shortness of breath, rhonchi on auscultation and overall an inadequate progress we will keep her in the hospital for an additional day and for optimization of her treatment. We will reevaluate her tomorrow as well as morning labs. - Problems/Diagnosis (1) Bronchopneumonia Problem: Acute (2) Acute decompensated heart failure Problem: Acute (3) Influenza A Problem: Acute (4) Atrial fibrillation Problem: Chronic (5) Bronchial asthma Problem: Chronic Qualifiers: Asthma severity: moderate Asthma complication type: with acute exacerbation
[2019-06-09] MEDS: FUROSEMIDE 40 MG TABLET PO SCH (10:20)
[2019-06-09] MEDS: predniSONE 20 MG TABLET PO SCH (10:22)
[2019-06-09] MEDS: ALBUTEROL SULFATE 2.5 MG/0.5 ML VIAL.NEB IH SCH ×4 (10:39→22:15)
[2019-06-09] MEDS: LEVOFLOXACIN 750 MG TABLET PO SCH (20:19)
[2019-06-10] MEDS: ALBUTEROL SULFATE 2.5 MG/0.5 ML VIAL.NEB IH SCH ×2 (02:14→06:04)
[2019-06-10] MEDS: LEVOTHYROXINE SODIUM 100 MCG TABLET PO SCH (06:37)
[2019-06-10] MEDS: INSULIN REGULAR, HUMAN 100 UNITS/ML VIAL SC SCH ×4 (06:37→21:57)
[2019-06-10 06:42] LABS: Prothrombin Time (Patient) 27.9 Seconds (9.1-10.7)
[2019-06-10 06:46] LABS: INR 2.94 INR (0.92-1.08)
[2019-06-10 06:50] LABS: BUN/Creatinine Ratio 27.5 (9.0-21.6)
[2019-06-10 06:51] LABS: Anion Gap 9.8 mmol/L (6.8-13.8); Bilirubin, Total 0.4 mg/dL (0.0-1.1); Calcium * 8.5 mg/dL (7.9-10.9); Carbon Dioxide 34.2 mmol/L (24-32.6); Total Protein 6.9 gm/dL (6.2-8.2)
[2019-06-10] MEDS: METOPROLOL SUCCINATE 100 MG TABLET.SA PO SCH (08:05)
[2019-06-10] MEDS: CALCIUM PO SCH (08:05)
[2019-06-10] MEDS: CRANBERRY FRUIT PO SCH (08:05)
[2019-06-10] MEDS: OSELTAMIVIR PHOSPHATE 30 MG CAPSULE PO SCH ×2 (08:05→21:56)
[2019-06-10] MEDS: FUROSEMIDE 40 MG TABLET PO SCH (08:06)
[2019-06-10] MEDS: predniSONE 20 MG TABLET PO SCH (08:06)
[2019-06-10] MEDS: PANTOPRAZOLE SODIUM 40 MG in NORMAL SALINE 100 ML IV SCH ×2 (08:41→21:55)
[2019-06-10] MEDS: POTASSIUM CHLORIDE 20 MEQ TABLET.SA PO SCH ×2 (08:42→21:55)
--- NOTE | 2019-06-10 09:53 | PN ---
Subjective - Date and Time Seen Date: 06/10/19 Time: 09:42 Subjective Narrative: I still have chest congestion and cough. Shortness of breath is better. Objective Objective Narrative: 83-year-old female admitted for bronchopneumonia, influenza type A, and decompensated CHF was evaluated at bedside was found to be afebrile and in no acute distress. Patient has shown clinical improvement but still has significant chest congestion and a deep persistent cough. Her shortness of breath has improved and she denies any difficulty breathing. O2 by nasal cannula had to be increased during the night due to a drop in saturation, however at the moment she is saturating adequately. Patient reports feeling better but is concerned about her chest congestion. Auscultation reveals a combination of scattered rhonchi wheezing but no crackles. Chest x-ray was ordered this morning after a respiratory therapist noted a change in the patient during the night, however the results show no change from the previous x-ray. Radiologist reports signs of early CHF and COPD changes which were previously reported. Patient has no pedal edema and her crackles have improved, however given her clinical presentation I think there is still lingering decompensation of her CHF. Therefore her treatment was optimized this morning and her breathing treatment was switched from albuterol to DuoNeb, diuretics were increased, she was switched from p.o. to IV steroids, and physical therapy was added to avoid deconditioning and to ambulate the patient. Of importance it was also discovered that guaifenesin DM was never administered to the patient during this hospitalization, therefore it was switched to be given scheduled while the patient is awake instead of as needed. If additional mucolytic or decongestant is necessary I will add something else. Outside of that patient maintained stable vitals she appears comfortable and has been no recurrence of fever or chills. She will complete Tamiflu tomorrow so we will reevaluate her to monitor her progress. - Review of Systems Generalized/Overall Review: Reports: No Symptoms Reported EENTM: Reports: No Symptoms Reported Respiratory: Reports: Cough, Wheezing Cardiac: Reports: No Symptoms Reported Abdominal: Reports: No Symptoms Reported Genitourinary Symptoms: Reports: No Symptoms Reported Musculoskeletal Complaints: Reports: No Symptoms Reported Neurological: Reports: No Symptoms Reported Skin: Reports: No Symptoms Reported Endocrine: Reports: No Symptoms Reported - Vitals Vitals: Last Vital Signs Temp 36.5 C 06/10/19 06:35 Pulse 87 06/10/19 08:13 Resp 16 06/10/19 06:35 BP 115/72 06/10/19 08:06 Pulse Ox 99 06/10/19 06:35 - Abnormal Lab Findings Abnormal Lab Findings: Abnormal Lab Results 06/10/19 06/10/19 Range/Units 06:20 06:20 PT 27.9 H (9.1-10.7) Seconds INR (Anticoag Therapy) 2.94 H (0.92-1.08) INR Sodium 145 H (132-142) mmol/L Plasma Sodium 145 H (130-142) mmol/L Carbon Dioxide 34.2 H (24-32.6) mmol/L BUN/Creatinine Ratio 27.5 H (9.0-21.6) AST 59 H (0-48) U/L ALT 69 H (19-67) U/L Albumin 3.0 L (3.4-5.0) gm/dl - Exam Constitutional: Present: Alert, Oriented x3, Cooperative, Well developed, Well nourished, No distress, Elderly ENT Exam: Present: normal ENT inspection, hearing grossly normal, pharynx normal, TMs normal Neck: Present: non-tender, full range of motion, supple, normal inspection, trachea midline Breasts: Present: Exam deferred Respiratory: Present: chest non-tender, no respiratory distress, no accessory muscle use, rhonchi, wheezing Cardiovascular/Chest: Present: normal peripheral pulses, no chest tenderness, no gallop, no JVD, no murmur, no rub, irregularly irregular Abdomen: Present: soft, nontender, nondistended, no rebound tenderness, no hepatospenomegaly, obese /Rectal: Present: Exam deferred Extremity: Present: normal range of motion, non-tender, normal inspection, no pedal edema, no calf tenderness, normal capillary refill, pelvis stable Skin Exam: Present: normal color, warm/dry, no cyanosis Lymphatic: Present: no adenopathy Neurologic: Present: manager quantitative II-XII nml as tested, normal cerebellar test, no motor/sensory deficits, alert, normal mood/affect, oriented x 3 Appearance: Present: appropriate appearance, appropriate insight, neat, no memory impairment Eye contact: Present: cooperative, good eye contact, normal speech Thoughts: Present: normal thought pattern Assessment/Plan Plan Narrative: Patient sodium has slightly increased which might be explained by the use of the diuretics, follow-up labs were ordered for tomorrow morning for evaluation. We will also evaluate patient at bedside after the optimization and change added to her treatment today. Nursing staff has been ordered to administer the antitussive/decongestant to treat her rhonchi. Orders for physical therapy to get her out of bed and ambulating were placed and she was provided with a spirometer. We will continue to monitor closely and reevaluate in the morning. - Problems/Diagnosis (1) Bronchopneumonia Problem: Acute (2) Acute decompensated heart failure Problem: Acute (3) Influenza A Problem: Acute (4) Atrial fibrillation Problem: Chronic (5) Bronchial asthma Problem: Chronic Qualifiers: Asthma severity: moderate Asthma complication type: with acute exacerbation (6) COPD (chronic obstructive pulmonary disease) Problem: Acute (7) COPD (chronic obstructive pulmonary disease) Problem: Acute Qualifiers: COPD type: COPD with acute exacerbation Qualified Code(s): J44.1 - Chronic obstructive pulmonary disease with (acute) exacerbation (8) Hypernatremia Problem: Acute
[2019-06-10] MEDS: ALBUTEROL SULFATE/IPRATROPIUM 3 ML NEBU IH SCH ×4 (10:17→22:13)
[2019-06-10] MEDS: guaiFENesin/DEXTROMETHORPHAN SYRUP PO SCH ×4 (10:27→21:57)
[2019-06-10] MEDS: METHYLPREDNISOLONE SOD SUCC/PF 125 MG/2 ML VIAL IV SCH ×3 (10:27→21:56)
[2019-06-10] MEDS: FUROSEMIDE 10 MG/ML VIAL IV SCH ×2 (10:28→21:56)
[2019-06-10] MEDS: WARFARIN SODIUM 1 MG TABLET PO SCH (17:17)
[2019-06-10] MEDS: LEVOFLOXACIN 750 MG TABLET PO SCH (21:55)
[2019-06-11] MEDS: guaiFENesin/DEXTROMETHORPHAN SYRUP PO SCH ×3 (01:41→09:11)
[2019-06-11] MEDS: ALBUTEROL SULFATE/IPRATROPIUM 3 ML NEBU IH SCH ×3 (01:59→10:21)
[2019-06-11] MEDS: METHYLPREDNISOLONE SOD SUCC/PF 125 MG/2 ML VIAL IV SCH ×2 (05:03→10:54)
[2019-06-11] MEDS: LEVOTHYROXINE SODIUM 100 MCG TABLET PO SCH (06:42)
[2019-06-11 07:00] LABS: INR 3.73 INR (0.92-1.08); Prothrombin Time (Patient) 35.1 Seconds (9.1-10.7)
[2019-06-11 07:06] LABS: Albumin * 3.3 gm/dl (3.4-5.0); Anion Gap 10.9 mmol/L (6.8-13.8); BUN/Creatinine Ratio 27.7 (9.0-21.6); Bilirubin, Total 0.5 mg/dL (0.0-1.1); Ca. Corrected For Albumin 9.3 mg/dL (8.4-10.2); Calcium * 9.1 mg/dL (7.9-10.9); Carbon Dioxide 32.9 mmol/L (24-32.6); Potassium 3.8 mmol/L (3.4-4.6); Total Protein 7.4 gm/dL (6.2-8.2)
[2019-06-11] MEDS: INSULIN REGULAR, HUMAN 100 UNITS/ML VIAL SC SCH ×2 (07:31→10:59)
[2019-06-11] MEDS: CRANBERRY FRUIT PO SCH (09:10)
[2019-06-11] MEDS: CALCIUM PO SCH (09:10)
[2019-06-11] MEDS: FUROSEMIDE 10 MG/ML VIAL IV SCH (09:10)
[2019-06-11] MEDS: POTASSIUM CHLORIDE 20 MEQ TABLET.SA PO SCH (09:10)
[2019-06-11] MEDS: METOPROLOL SUCCINATE 100 MG TABLET.SA PO SCH (09:11)
[2019-06-11] MEDS: PANTOPRAZOLE SODIUM 40 MG in NORMAL SALINE 100 ML IV SCH (09:11)
[2019-06-11] MEDS: OSELTAMIVIR PHOSPHATE 30 MG CAPSULE PO SCH (09:11)
--- NOTE | 2019-06-11 09:12 | DS ---
(1) Bronchopneumonia Problem: Acute (2) Acute decompensated heart failure Problem: Resolved (3) Influenza A Problem: Resolved (4) Atrial fibrillation Problem: Chronic (5) Bronchial asthma Problem: Chronic Qualifiers: Asthma severity: moderate Asthma complication type: with acute exacerbation (6) COPD (chronic obstructive pulmonary disease) Problem: Chronic Qualifiers: COPD type: COPD with acute exacerbation Qualified Code(s): J44.1 - Chronic obstructive pulmonary disease with (acute) exacerbation (7) Hypernatremia Problem: Acute Date of Discharge:: 06/11/19 Hospital Course: 83-year-old female admitted for bronchopneumonia, acute COPD exacerbation, decompensated CHF, and influenza type A was evaluated at bedside and was found to be afebrile and in no acute distress. Patient has shown significant clinical improvement and appears to be doing well. She continues to have a cough that responds to antitussives/mucolytics, however her chest congestion is better. Bedside evaluation done during this morning's rounds was negative for any crackles and only revealed residual rhonchi and mild wheezing. Patient reports that the breathing treatments really helped with her breathing and now she only has mild shortness of breath with exertion. Patient also started physical therapy yesterday and was able to ambulate with assistance of a walker. She is down to 0.5 L of oxygen by nasal cannula however when it is removed her saturation dropped down to upper 80s. Therefore was determined that the patient would need at home oxygen in order to maintain adequate saturation. She completed Tamiflu and 5 days of IV antibiotics, there has been no recurrence of fever or chills therefore we will discharge her today with instructions to follow-up with her PCP and a prescription for additional days of oral antibiotics, oral steroids, and oxygen. Her INR was also found to be supratherapeutic on this morning's labs therefore patient was instructed to hold today's dose of warfarin and to resume tomorrow, and will repeat INR on for evaluation. She was also instructed to follow-up with her PCP in the next 5 days. At home oxygen is being ordered as well as home health. Because Mrs. Ospina is confined to the home due to significant issues with balance and high risk of falls as well as her chronic condition of CHF atrial fibrillation and diabetes. The need for mcc is necessary for management of her medications and for monitoring of vital signs. She will also need a bath aide/home health aide to assist with baths and other activities of daily living. We are also ordering physical therapy to address issues with balance, physical deconditioning, and generalized weakness. The need for home health care skilled services is directly related to the time spent [id number] with the patient. Procedures Performed: none Results and Findings: Pending Mircobiology Results 06/07/19 19:36 Blood Blood Culture - Preliminary NO GROWTH AFTER 48 HOURS 06/07/19 18:52 Blood Blood Culture - Preliminary NO GROWTH AFTER 48 HOURS Lab Pending Results 06/07/19 18:35: Influenza Type A Ag Positive H, Influenza Type B Ag Negative 06/07/19 18:52: WBC 10.0, RBC 3.58 L, Hgb 11.3 L, Hct 36.5 L, MCV 102.0 H, MCH 31.6 H, MCHC 31.0 L, RDW 15.6 H, Plt Count 106 L, MPV 11.4, Immature Gran % (Auto) 0.30, Immature Gran # (Auto) 0.03, Neutrophils % 84.2 H, Lymphocytes % 12.4 L, Monocytes % 2.9, Eosinophils % 0.0, Basophils % 0.2, Nucleated RBC % 0.0, Neutrophils # 8.4 H, Lymphocytes # 1.24 L, Monocytes # 0.3, Eosinophils # 0.0, Absolute Basophils 0.0 06/07/19 18:52: Sodium 136, Plasma Sodium 137, Potassium 3.4, Chloride 99, Carbon Dioxide 31.7, Anion Gap 8.7, BUN 23, Creatinine 1.06, Est GFR (Non-Af Amer) 53 L, BUN/Creatinine Ratio 21.7 H, Random Glucose 173 H, Calcium 8.3, Calcium Adj for Albumin 8.1 L, Total Bilirubin 0.8, AST 115 H, ALT 58, Alkaline Phosphatase 112, Troponin I 0.048, C-Reactive Prot, Quant 8.2 H, B-Natriuretic Peptide 3638 H, Total Protein 7.4, Albumin 3.8 06/07/19 18:52: PT 25.2 H, INR (Anticoag Therapy) 2.64 H 06/07/19 18:52: PTT ([place]) 35.9 H 06/07/19 18:52: Lactic Acid, Venous 2.3 H* 06/07/19 19:30: pCO2 34.6, pO2 108.8 H, HCO3 25.0, Total CO2 26.0 H, Base Excess 1.6, ABG pH 7.48 H, ABG O2 Sat (Measured) 98.3 H 06/07/19 21:45: Lactic Acid, Venous 1.2 06/08/19 09:22: PT 32.2 H, INR (Anticoag Therapy) 3.41 H 06/09/19 07:10: Sodium 141, Plasma Sodium 141, Potassium 3.4, Chloride 100, Carbon Dioxide 36.4 H, Anion Gap 8.0, BUN 27 H, Creatinine 1.13, Est GFR (Non-Af Amer) 49 L, BUN/Creatinine Ratio 23.9 H, Random Glucose 102 D, Calcium 8.2, Calcium Adj for Albumin 8.3 L, Total Bilirubin 0.5, AST 108 H, ALT 83 H, Alkaline Phosphatase 95, Total Protein 7.6, Albumin 3.5 06/09/19 07:10: PT 30.6 H, INR (Anticoag Therapy) 3.23 H 06/10/19 06:20: Sodium 145 H, Plasma Sodium 145 H, Potassium 4.0, Chloride 105, Carbon Dioxide 34.2 H, Anion Gap 9.8, BUN 22, Creatinine 0.80, Est GFR (Non-Af Amer) 73 D, BUN/Creatinine Ratio 27.5 H, Random Glucose 102, Calcium 8.5, Calcium Adj for Albumin 9.0, Total Bilirubin 0.4, AST 59 H, ALT 69 H, Alkaline Phosphatase 80, Total Protein 6.9, Albumin 3.0 L 06/10/19 06:20: PT 27.9 H, INR (Anticoag Therapy) 2.94 H 06/11/19 06:48: PT 35.1 H, INR (Anticoag Therapy) 3.73 H 06/11/19 06:48: Sodium 142, Plasma Sodium 143 H, Potassium 3.8, Chloride 102, Carbon Dioxide 32.9 H, Anion Gap 10.9, BUN 28 H, Creatinine 1.01, Est GFR (Non- Af Amer) 56 L D, BUN/Creatinine Ratio 27.7 H, Random Glucose 185 H D, Calcium 9.1, Calcium Adj for Albumin 9.3, Total Bilirubin 0.5, AST 43, ALT 63, Alkaline Phosphatase 78, Total Protein 7.4, Albumin 3.3 L Discharge Location: Home Disposition: Home self-correction Health Agency: [facility] Home Health Condition: Serious Face to Face Encounter completed per [facility] Guidelines: Yes Discharge Activity: Activity as tolerated Discharge Diet: Consistent carbs Referrals: Aleida Wright MD [Primary Care Provider] - Prescriptions (Any new or edited meds): Albuterol Sulfate/Ipratropium [Duoneb 2.5-0.5MG/3ML Soln] 3 ml INHALATION Q4HRT PRN #20 nebu PRN Reason: Shortness Of Breath Transmission Status: Pending to [place] Levofloxacin [Levaquin] 500 mg PO HS 5 Days #5 tab Transmission Status: P[place] Prednisone 40 mg PO DAILY 5 Days #5 tab Transmission Status: P[place] guaiFENesin/DEXTROMETHORPHAN [Robitussin-Dm] 10 ml PO Q4H #60 syrup Transmission Status: Pending to [place] Complete Home Medications List: Complete Home Medication List: Calcium/Cranberry Fruit [Cranberry 400 mg Caplet] 1 ea PO DAILY 03/31/15 Docusate Sodium [Stool Softener] 200 mg PO DAILY PRN 09/08/16 Warfarin Sodium [Coumadin] 2 mg PO DAILY@1700 09/08/16 Potassium Chloride [K-Dur] 20 meq PO BID 02/02/17 Metoprolol Succinate 200 mg PO DAILY 10/11/17 torsemide 20 mg tablet 20 mg PO DAILY 03/20/18 warfarin 1 mg tablet See Rx Instructions .ROUTE .COMPLEX #180 tablet 03/11/19 levothyroxine 100 mcg tablet See Rx Instructions .ROUTE .COMPLEX #90 tablet 03/19/19 Albuterol Sulfate/Ipratropium [Duoneb 2.5-0.5MG/3ML Soln] 3 ml INHALATION Q4HRT PRN #20 nebu 06/11/19 Levofloxacin [Levaquin] 500 mg PO HS 5 Days #5 tab 06/11/19 Prednisone 40 mg PO DAILY 5 Days #5 tab 06/11/19 guaiFENesin/DEXTROMETHORPHAN [Robitussin-Dm] 10 ml PO Q4H #60 syrup 06/11/19
[2019-06-11 14:27] VITALS: BP 120/74
== END 2019-06-11 14:45 | disposition home health service (06) | DRG 291 ==
LOC: ER 18:18 → MS 19:33
PROVIDERS: ADMIT Family Medicine; ATTEND Family Medicine
DX: J18.0 Bronchopneumonia, unspecified organism; J45.41 Moderate persistent asthma with (acute) exacerbation; J44.1 Chronic obstructive pulmonary disease with (acute) exacerbation; J10.1 Influenza due to other identified influenza virus with other respiratory manifestations; I11.0 Hypertensive heart disease with heart failure; Z79.01 Long term (current) use of anticoagulants; E86.0 Dehydration; E03.9 Hypothyroidism, unspecified; E87.0 Hyperosmolality and hypernatremia; E11.9 Type 2 diabetes mellitus without complications; Z87.891 Personal history of nicotine dependence; I48.20 Chronic atrial fibrillation, unspecified
CPT/HCPCS: 36415; 36600; 71010; 71020; 71045; 71046; 80053; 82803; 83519; 83605; 83880; 84484; 85025; 85610; 85730; 86140; 87040; 87400; 87449; 93005; 94010; 94640; 94664; 94760; 96365; 96375; 97110; 97116; 97161; 99285